=== PATIENT | male | born 1975 | race Caucasian/White ===

== ENCOUNTER 2017-03-18 11:17 | Emergency (ER) | payer MEDICAID ==
[~2017-03-18] VITALS: Ht 175.3 cm; Wt 67.0 kg
[2017-03-18 11:21] VITALS: BP 132/81
== END 2017-03-18 12:05 | disposition home or self-care (01) ==
LOC: ED 11:58
DX: J20.9 Acute bronchitis, unspecified (principal); B96.89 Other specified bacterial agents as the cause of diseases classified elsewhere
CPT/HCPCS: 99283